=== PATIENT | male | born 1990 | race Hispanic/Latino ===

== ENCOUNTER 2018-07-26 16:28 | Emergency (ER) | payer SELFPAY ==
[2018-07-26] MEDS ORDERED: Lidocaine 1% (PF) 30 ML VIAL ONE (17:30)
== END 2018-07-26 18:15 | disposition home or self-care (01) ==
LOC: ERS 16:28
DX: H66.41 Suppurative otitis media, unspecified, right ear (principal); F17.210 Nicotine dependence, cigarettes, uncomplicated
CPT/HCPCS: 69000; J2001